=== PATIENT | male | born 1990 | race Caucasian/White ===

== ENCOUNTER → 2019-05-13 | Outpatient (CLI) | payer OTHER ==
--- NOTE | 2019-05-13 21:48 | CONS ---
CONSULTATION REASON FOR CONSULTATION: Hypersomnia. This patient is 29. He is always tired. He is slim. He has a BMI of 25.6. He occasionally snores. Yet not constant. He is excessively fatigued and tired during the day. He has trouble waking up in the morning. He has trouble paying attention and falling sleep. He can fall asleep at any time during the day unless he is quite busy. 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 He is able to complete his job requirements without any major difficulties. He is going to bed between 7-8 p.m. He wakes up at 4:30 a.m. in the morning. On weekends, he wakes up between 9-11 a.m. in the morning. His Kapolei score is at 19. He has history of ADHD and he has been maintained on Adderall and he takes 1 tab 20 mg on an as needed basis in addition to Zoloft for anxiety and personality changes and instability at a dose of 50 mg p.o. daily. No sleep paralysis. No hallucinations. No cataplexy. No grinding of the teeth. No nocturia. No waking up in the middle of the night gasping for air. He sleeps on his stomach. Watches TV in his bedroom apartment environment. He has gained around 20 pounds over the past 1 year. He does not have any sleep paralysis, hallucinations or cataplexy. No personal or family history for obstructive sleep apnea. PAST MEDICAL HISTORY: ADD, ADHD and history of anxiety. PAST SURGICAL HISTORY: Includes negative. DRUG ALLERGIES: PENICILLIN. OUTPATIENT MEDICATIONS ARE: Zoloft 50 mg p.o. daily and Adderall 20 mg on an as-needed basis. SOCIAL HISTORY: The patient smokes half pack of cigarettes a day. Drinks occasional alcohol. No history of substance abuse. FAMILY HISTORY: Mother and father both healthy. Negative for sleep breathing disorder or narcolepsy. REVIEW OF SYSTEMS: Fourteen-point review of systems was done. Positive findings are mentioned in history of present illness. No symptoms to suggest restless legs syndrome. No grinding. No sleepwalking or sleep talking. No sleep paralysis. No parasomnia. PHYSICAL EXAMINATION: VITAL SIGNS: BP is 120/67, pulse 52, respirations 16, temperature 97.9. Saturation 98% on room air. Height is 6'7", weight is 166. Neck size 15 and one quarter of an inch. Kapolei Score is at 19. BMI 25.6. General appearance is calm and comfortable. Head is atraumatic, normocephalic. NECK: Supple. No JVD. No goiter or neck masses. Mallampati class I. LUNGS: Clear to auscultation. HEART: Sounds are regular rate and rhythm. Normal S1, S2. No S3, S4. No murmurs. ABDOMEN: Soft, nontender. No organomegaly. EXTREMITIES: No edema. No cyanosis or clubbing. NEUROLOGIC: Awake and alert. There are no focal neurological deficits. IMPRESSION: 1. Hypersomnia, Kapolei score of 19. Exact cause is not clear. There are absent features of to suggest obstructive sleep apnea. No clear indication for narcolepsy. As such, I am not sure of the underlying cause for chronic hypersomnia. 2. Attention-deficit disorder, attention-deficit/hyperactivity disorder. 3. Chronic anxiety. PLAN: 1. Extend sleep hours to an average of 8-9 hours per night if is possible. The patient needs to go to bed earlier times. 2. Sleep hygiene measures in general are adequate. 3. We will hold the Zoloft for now and proceed with a PSG and 2nd day MSLT to assess the sleep quality to rule out sleep breathing disorder and rule out narcolepsy. He needs to be off Zoloft for this procedure. 4. We will make further recommendations based on the results. This will be an interesting test to see if there is any other pathology supporting his chronic hypersomnia and sleepiness. We will continue to follow. MMODL / IJN: [id number] /
== END | disposition home or self-care (01) ==
LOC: SLEEP 15:11
PROVIDERS: ATTEND Internal Medicine Critical Care Medicine
DX: G47.10 Hypersomnia, unspecified (principal); F90.1 Attention-deficit hyperactivity disorder, predominantly hyperactive type; F41.9 Anxiety disorder, unspecified
CPT/HCPCS: 99211

== ENCOUNTER → 2019-06-24 | Outpatient (CLI) | payer OTHER ==
--- NOTE | 2019-06-24 19:56 | PN ---
PROGRESS NOTE This is a 29-year-old male patient coming in to discuss the results of his sleep study. As mentioned earlier, the patient was initially seen due to concerns about sleep apnea. He has snoring and chronic hypersomnia and sleepiness. He was taking ADHD treatment with Adderall and he was also on Zoloft 50 mg p.o. daily. He underwent a PSG and second-day MSLT. The sleep study showed no evidence of any sleep breathing disorder, as the patient's AHI was less than 5. Nevertheless, the MSLT was quite abnormal, as the patient demonstrated hypersomnia with a mean sleep latency for 5 naps being at 2.5, and he had 5 REM-onset sleeps. Note that this study was done with the patient off treatment. He tells me while on Adderall he feels well and does not fall asleep. In fact, he is surprised that his MSLT came back quite abnormal. Note that the PSG also showed increased sleep efficiency on the order of 95%. He had a short sleep latency. Sleep architecture in general was within normal limits and the patient did have an arousal index of 21.9. No sleep paralysis. No hallucinations. No cataplexy. No family history of narcolepsy, despite a PSG and a second-day MSLT that was suggestive of this diagnosis. I am considering the possibility of a type 1 narcolepsy in this patient. 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 He has never been involved in a motor vehicle accident because of feeling drowsy or sleepy. He has never fallen asleep while driving. He does not doze off behind the wheel. He does not take any naps during the day, based on the reported history. On today's Points score grading, the patient's Points score was reported to be 2, which is considerably lower compared to his initial consultation, when his Points score was 19. REVIEW OF SYSTEMS: Fourteen-point review of systems was done, and the positive findings are all mentioned above in the history of present illness. PHYSICAL EXAMINATION: VITAL SIGNS: His blood pressure is 125/65, pulse 79, respirations 14. Points score is 2. Temperature 98.5, saturation 97% on room air. GENERAL APPEARANCE: Calm, comfortable. HEAD: Atraumatic, normocephalic. NECK: Supple. No JVD. No goiter or neck masses. LUNGS: Clear to auscultation. HEART: Heart sounds are regular rate and rhythm. Normal S1, S2. No S3, S4. No murmurs. ABDOMEN: Soft, nontender. EXTREMITIES: No edema. No cyanosis or clubbing. 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 Note that this PSG and MSLT were done with the patient being off Zoloft and Adderall. On today's evaluation, he declines being somnolent and sleepy. He reports an Points score of 2. Denies falling asleep during day-to-day activities. Declines falling asleep while driving. He reports that he is fully alert and awake, especially when he is taking his Adderall maintenance, which is 20 mg p.o. twice a day. PLAN: I had a lengthy discussion with the patient. I went over the polysomnograph and the second-day MSLT. Obviously he does not have any sleep paralysis, hallucination or cataplexy, and the MSLT is consistent and supportive of the possibility of a type 2 narcolepsy. He denies taking any naps. He denies having any major hypersomnia or sleepiness and his Points score is 2 on today's evaluation. He is back to taking Zoloft and Adderall. Based on all this, I think it is reasonable to do a maintenance- of-wakefulness test while the patient is on Adderall to decide if the patient is alert enough and successfully treated. Obviously a MWT test is not a gold standard, as it has its own limitation. However, this test offers some objective support that the patient is awake enough while being on Adderall. If he fails the MWT test, addition of an alternative or additional stimulant will be recommended. For now, the patient was asked to improve his sleep hygiene measures. He will go back to utilizing the Adderall at the regular dose of 20 mg twice a day. We will proceed with an MWT (maintenance-of- wakefulness test) and will make further recommendations on his treatment or if any adjustments are needed. MMODL / IJN: [id number] /
== END | disposition home or self-care (01) ==
LOC: SLEEP 16:12
PROVIDERS: ATTEND Internal Medicine Critical Care Medicine
DX: G47.10 Hypersomnia, unspecified (principal)

== ENCOUNTER 2021-04-17 10:28 | Emergency (ER) | payer OTHER ==
[2021-04-17 10:53] VITALS: BP 122/71; PULSE 77; RESP 18; TEMP 98.8
[2021-04-17] MEDS ORDERED: PROPARACAINE 0.5% OPHTH DROPS 15 ML BTL BOTH EYES STA (10:57)
[2021-04-17] MEDS ORDERED: FLUORESCEIN STRIPS 1 MG STRIP BOTH EYES ONE (10:57)
--- NOTE | 2021-04-17 11:26 | ED ---
General Adult HPI - General Chief complaint: Eye Problems Stated complaint: Eye issues Time Seen by Provider: 04/17/21 10:57 Source: patient Mode of arrival: ambulatory Limitations: no limitations - History of Present Illness Initial comments: Dictation was produced using [employer] dictation software. please excuse any grammatical, word or spelling errors. Chief Complaint: 31-year-old male presents to the emergency department right eye pain History of Present Illness: 31-year-old male presents to the emergency Department with right eye pain. Patient is a contact lenses user. Began having symptoms yesterday. Patient noted redness to his eye. He complains of slight photophobia. Not worse with dark rooms. Denies any fevers. Denies any vision loss. The ROS documented in this emergency department record has been reviewed and confirmed by me. Those systems with pertinent positive or negative responses have been documented in the HPI. All other systems are other negative and/or noncontributory. PHYSICAL EXAM: General Impression: Alert and oriented x3, not in acute distress HEENT: Normocephalic atraumatic, extra-ocular movements intact, pupils equal and reactive to light bilaterally, mucous membranes moist. Cardiovascular: Heart regular rate and rhythm Chest: Able to complete full sentences, no retractions, no tachypnea Motor: no focal deficits noted Neurological: CN II-XII grossly intact, no focal motor or sensory deficits noted Skin: Intact with no visualized rashes Psych: Normal affect and mood Eye exam: There is conjunctiva to the right eye versus the left. Pain is relieved with proparacaine drops. Fluorescein staining with black light shows no corneal abrasions or corneal abnormalities. Everting the right upper eyelid shows a stye eye to the lateral upper eyelid. IOP is 13 ED course: 31-year-old male presents to the emergency department presents to the ER for right eye pain. He does have physical exam consistent with a stye eye. He does however have conjunctiva injection and pain improvement with proparacaine. Concern of a corneal process. All signs upon arrival are within acceptable limits. Patient given Ciprodex eyedrops and follow up with ophthalmology. - Related Data Home Medications Medication Instructions Recorded Confirmed Dextroamphetamine/Amphetamine 20 mg PO BID 04/17/21 04/17/21 [Adderall] Previous Rx's Medication Instructions Recorded Levofloxacin 0.5% Ophth Soln 2 drop RIGHT EYE Q2H #1 unit 04/17/21 [Quixin Ophth Soln] Allergies Allergy/AdvReac Type Severity Reaction Status Date / Time Penicillins Allergy Rash/Hives Verified 04/17/21 11:07 Review of Systems ROS Statement: Those systems with pertinent positive or pertinent negative responses have been documented in the HPI. ROS Other: All systems not noted in ROS Statement are negative. Past Medical History Past Medical History: No Reported History History of Any Multi-Drug Resistant Organisms: None Reported Past Surgical History: No Surgical Hx Reported Past Psychological History: No Psychological Hx Reported Smoking Status: Current every day smoker Past Alcohol Use History: Occasional Past Drug Use History: None Reported General Exam Limitations: no limitations Course Vital Signs 04/17/21 10:51 Temperature 98.8 F Pulse Rate 77 Respiratory 18 Rate Blood Pressure 122/71 O2 Sat by Pulse 99 Oximetry Disposition Clinical Impression: Hordeolum eyelid, internal, Corneal abrasion Disposition: HOME SELF-CARE Condition: Fair Instructions (If sedation given, give patient instructions): Stye (ED), Corneal Abrasion (ED) Prescriptions: Levofloxacin 0.5% Ophth Soln [Quixin Ophth Soln] 2 drop RIGHT EYE Q2H #1 unit Is patient prescribed a controlled substance at d/c from ED?: No Referrals: Devonte Patel MD [STAFF PHYSICIAN] - 1-2 days
== END 2021-04-17 11:29 | disposition home or self-care (01) ==
LOC: EC 10:28
DX: H00.023 Hordeolum internum right eye, unspecified eyelid (principal); S05.01XA Injury of conjunctiva and corneal abrasion without foreign body, right eye, initial encounter; F17.200 Nicotine dependence, unspecified, uncomplicated; Z72.89 Other problems related to lifestyle
CPT/HCPCS: 99283